=== PATIENT | male | born 1945 | race Caucasian/White ===

== ENCOUNTER 2017-08-30 18:02 | Inpatient (IN) | payer OTHER ==
[~2017-08-30] VITALS: Ht 172.7 cm; Wt 77.5 kg
[2017-08-30] MEDS ORDERED: SODIUM CHLORIDE 0.9% 1000ML 1,000 ML IV STA ×2 (18:25)
[2017-08-30] MEDS ORDERED: OPTIRAY 320 IV PRN (18:45)
[2017-08-30 19:02] LABS: BASO % 0.1 %; BASO ABS # 0.01 K/uL (0-0.2); EOS % 0.1 %; EOS ABS # 0.01 K/uL (0-0.5); HEMATOCRIT 41.6 % (42-52); HEMOGLOBIN 14.5 g/dL (14.0-18.0); IG# 0.02 K/uL (0.00-0.02); LYMPH % 13.6 %; LYMPH ABS # 1.02 K/uL (1.2-3.4); MEAN CELL VOLUME 86.8 fL (80-100); MEAN CORPUSCULAR HEMOGLOBIN 30.3 pg (25-34); MEAN CORPUSCULAR HGB CONC 34.9 g/dl (32-36); MEAN PLATELET VOLUME 9.3 fL (7.4-10.4); MONO % 8.4 %; MONO ABS # 0.63 K/uL (0.11-0.59); NEUT % 77.5 %; NEUT ABS # 5.83 K/uL (1.4-6.5); PLATELET COUNT 212 K/uL (130-400); RED CELL DISTRIBUTION WIDTH CV 13.7 % (11.5-14.5); RED CELL DISTRIBUTION WIDTH SD 43.6 fL (36.4-46.3); WHITE BLOOD COUNT 7.52 K/uL (4.8-10.8)
[2017-08-30 19:18] LABS: ALBUMIN 3.5 gm/dl (3.4-5.0); CALCIUM 8.8 mg/dl (8.5-10.1); CREATININE 1.15 mg/dl (0.60-1.40); PTT PATIENT 24.9 SECONDS (21.0-31.0)
[2017-08-30 19:21] LABS: TOTAL PROTEIN 7.1 gm/dl (6.4-8.2)
[2017-08-30] MEDS ORDERED: CZR50 PO (19:36)
[2017-08-30] MEDS ORDERED: SIMV20TA2 PO (19:36)
--- NOTE | 2017-08-30 20:14 | DIAGNOSTIC IMAGING REPORT ---
ABDOMEN AND PELVIS CT WITH IV CONTRAST CT DOSE: 379.05 mGy.cm HISTORY: Acute generalized abdominal pain with anal bleeding abd pain TECHNIQUE: Multiaxial CT images of the abdomen and pelvis were performed following the use of intravenous contrast. A dose lowering technique was utilized adhering to the principles of ALARA. COMPARISON STUDY: None. FINDINGS: Mild dependent subsegmental bibasilar atelectasis. Calcified granuloma of the basal right lower lobe. There is no pneumatosis or pneumoperitoneum identified. The imaged inferior cardiac chambers are unremarkable. Gallbladder, liver, spleen, pancreas and adrenal glands are within normal limits. Mild nonspecific bilateral perinephric stranding. Nonobstructing 3 mm calculus of the inferior pole left kidney. No ureteral calculi or obstructive uropathy. Partially decompressed urinary bladder. Prostamegaly. Moderate mixed plaquing of the aorta. No bulky adenopathy. No bowel obstruction. Extensive colonic diverticulosis without CT evidence of acute diverticulitis. There is circumferential wall thickening with mucosal hyperemia and mild surrounding inflammatory stranding of the colon which extends from the hepatic flexure to the mid descending colon compatible with colitis. Moderate sized bilateral inguinal hernias are fat containing. Loop of nondilated small bowel is noted within the right hernia sac. Mild free pelvic fluid, likely reactive. Mild diastases recti. Tiny fat filled periumbilical hernia. Bones appear intact. Severe facet arthrosis of the lumbar spine, notably at L4-L5 and L5-S1. IMPRESSION: 1. Moderate circumferential wall thickening with mucosal hyperemia and mild surrounding inflammatory stranding involves the colon extending from the hepatic flexure to the mid descending colon compatible with colitis, possibly from infectious, inflammatory or ischemic etiology. Mild free pelvic fluid is likely reactive. 2. No bowel obstruction or pneumoperitoneum. 3. 3 mm nonobstructing calculus of the inferior pole left kidney. 4. Prostamegaly. 5. Moderate sized bilateral fat filled inguinal hernias. A loop of nondilated ileum extends into the right inguinal hernia. Electronically signed by: Wilian Hansen M.D. 08/30/2017 8:13 PM Dictated Date/Time: 08/30/2017 8:07 PM
[2017-08-30] MEDS ORDERED: [UNRECOGNIZED DRUG - REMARK] PO (20:35)
[2017-08-30] MEDS ORDERED: ACETAMINOPHEN 325 MG TAB PO PRN (21:45)
[2017-08-30] MEDS ORDERED: ALUMINUM/MAGNESIUM/SIMETH (MAALOX MAX) 30 ML UDC PO PRN (21:45)
[2017-08-30] MEDS ORDERED: ONDANSETRON INJ 2 MG/ML 2 ML VIAL IV PRN (21:45)
[2017-08-30] MEDS ORDERED: MAGNESIUM HYDROXIDE SUSP 30 ML UDC PO PRN (21:45)
[2017-08-30] MEDS ORDERED: POLYETHYLENE (MIRALAX) 17 GM PACK PO PRN (21:45)
[2017-08-30] MEDS ORDERED: PIPERACILL/TAZOBAC CONSULT ACTIVE PRN (21:45)
[2017-08-30] MEDS ORDERED: PIPERACILL/TAZOBAC IV 3.375 GM in DEXTROSE 5% 100ML 100 ML IV SCH (22:00)
[2017-08-30] MEDS ORDERED: PIPERACILL/TAZOBAC IV 3.375 GM in DEXTROSE 5% 100ML IV SCH (22:00)
[2017-08-30 22:25] VITALS: BP 194/86; PULSE 68; TEMP 36.9; O2SAT 97
--- NOTE | 2017-08-30 22:27 | EMERGENCY ROOM VISIT NOTE ---
History Report prepared by Celia: Shannon Swain Under the Supervision of: Dr. Rafiq Moore D.O. First contact with patient: 18:08 Chief Complaint: RECTAL BLEEDING Stated Complaint: BLEEDING THROUGH ANUS History of Present Illness The patient is a 72 year old male who presents to the Emergency Room with complaints of persistent rectal bleeding starting 0530 this morning. The patient had been having hard stools so he tried taking 2 Imodium last night. He woke up with abdominal pain and diarrhea. He had several episodes of diarrhea and each one appeared more bright red than the previous. He has never had this before. He is not on any blood thinners. He currently reports some abdominal irritation which he rates as a 0.1/10 in severity. He had some nausea this morning which resolved. He denies any vomiting, urinary burning, chest pain, SOB , lightheadedness, or dizziness. He denies any recent travel or change in diet. He has had an appendectomy. He has no known history of hemorrhoids. He has a history of diverticulitis. Source of History: patient Onset: 0530 this morning Position: other (rectal) Quality: other (bleeding) Timing: other (persistent) Associated Symptoms: + nausea (resolved), + abdominal pain, + diarrhea, No chest pain, No SOB, No vomiting, No urinary symptoms Review of Systems See HPI for pertinent positives & negatives. A total of 10 systems reviewed and were otherwise negative. Past Medical & Surgical Medical Problems: (1) Colitis (2) Diverticulitis (3) Rectal bleeding Family History Noncontributory secondary to age. Social History Smoking Status: Never Smoker Marital Status: Current/Historical Medications Scheduled Losartan Potassium (Losartan Potassium), Unknown Dose PO DAILY Simvastatin (Zocor), Unknown Dose PO QPM [Unknown Cardiac Med], PO DAILY Allergies Coded Allergies: No Known Allergies (Unverified , 08/30/17) Physical Exam Vital Signs Date Time Temp Pulse Resp B/P (MAP) Pulse Ox O2 Delivery O2 Flow Rate FiO2 08/30/17 21:28 69 16 183/90 96 Room Air 08/30/17 20:04 73 16 163/79 98 Room Air 08/30/17 19:22 68 08/30/17 18:38 97 Room Air 08/30/17 18:04 37.2 100 20 176/79 97 Room Air Physical Exam GENERAL: Sitting up in bed, alert, well appearing, well nourished, no distress, non-toxic EYE EXAM: normal conjunctiva. OROPHARYNX: no exudate, no erythema, lips, buccal mucosa, and tongue normal and mucous membranes are moist NECK: supple, no nuchal rigidity, no adenopathy, non-tender LUNGS: Clear to auscultation. Normal chest wall mechanics HEART: no murmurs, S1 normal and S2 normal ABDOMEN: abdomen soft, mild tenderness infraumbilically, normo-active bowel sounds, no masses, no rebound or guarding. BACK: Back is symmetrical on inspection and there is no deformity, no midline tenderness, no CVA tenderness. RECTAL: Chandu blood. SKIN: no rashes and no bruising UPPER EXTREMITIES: upper extremities are grossly normal. LOWER EXTREMITIES: No pitting edema. NEURO EXAM: Normal sensorium, cranial nerves II-XII grossly intact, normal speech, no gross weakness of arms, no gross weakness of legs. Medical Decision & Procedures ER Provider Diagnostic Interpretation: Radiology results as stated below per my review and the radiologist's interpretation: ABDOMEN AND PELVIS CT WITH IV CONTRAST CT DOSE: 379.05 mGy.cm HISTORY: Acute generalized abdominal pain with anal bleeding abd pain TECHNIQUE: Multiaxial CT images of the abdomen and pelvis were performed following the use of intravenous contrast. A dose lowering technique was utilized adhering to the principles of ALARA. COMPARISON STUDY: None. FINDINGS: Mild dependent subsegmental bibasilar atelectasis. Calcified granuloma of the basal right lower lobe. There is no pneumatosis or pneumoperitoneum identified. The imaged inferior cardiac chambers are unremarkable. Gallbladder, liver, spleen, pancreas and adrenal glands are within normal limits. Mild nonspecific bilateral perinephric stranding. Nonobstructing 3 mm calculus of the inferior pole left kidney. No ureteral calculi or obstructive uropathy. Partially decompressed urinary bladder. Prostamegaly. Moderate mixed plaquing of the aorta. No bulky adenopathy. No bowel obstruction. Extensive colonic diverticulosis without CT evidence of acute diverticulitis. There is circumferential wall thickening with mucosal hyperemia and mild surrounding inflammatory stranding of the colon which extends from the hepatic flexure to the mid descending colon compatible with colitis. Moderate sized bilateral inguinal hernias are fat containing. Loop of nondilated small bowel is noted within the right hernia sac. Mild free pelvic fluid, likely reactive. Mild diastases recti. Tiny fat filled periumbilical hernia. Bones appear intact. Severe facet arthrosis of the lumbar spine, notably at L4-L5 and L5-S1. IMPRESSION: 1. Moderate circumferential wall thickening with mucosal hyperemia and mild surrounding inflammatory stranding involves the colon extending from the hepatic flexure to the mid descending colon compatible with colitis, possibly from infectious, inflammatory or ischemic etiology. Mild free pelvic fluid is likely reactive. 2. No bowel obstruction or pneumoperitoneum. 3. 3 mm nonobstructing calculus of the inferior pole left kidney. 4. Prostamegaly. 5. Moderate sized bilateral fat filled inguinal hernias. A loop of nondilated ileum extends into the right inguinal hernia. Electronically signed by: Wilian Hansen M.D. 08/30/2017 8:13 PM Dictated Date/Time: 08/30/2017 8:07 PM Laboratory Results 08/30/17 18:50 Red Blood Count 4.79, Mean Corpuscular Volume 86.8, Mean Corpuscular Hemoglobin 30.3, Mean Corpuscular Hemoglobin Concent 34.9, Mean Platelet Volume 9.3, Neutrophils (%) (Auto) 77.5, Lymphocytes (%) (Auto) 13.6, Monocytes (%) (Auto) 8.4, Eosinophils (%) (Auto) 0.1, Basophils (%) (Auto) 0.1, Neutrophils # (Auto) 5.83, Lymphocytes # (Auto) 1.02, Monocytes # (Auto) 0.63, Eosinophils # (Auto) 0.01, Basophils # (Auto) 0.01 08/30/17 18:50 Test 08/30/17 18:50 08/30/17 19:30 08/30/17 20:56 White Blood Count 7.52 K/uL (4.8-10.8) Red Blood Count 4.79 M/uL (4.7-6.1) Hemoglobin 14.5 g/dL (14.0-18.0) Hematocrit 41.6 % (42-52) Mean Corpuscular Volume 86.8 fL (80-100) Mean Corpuscular Hemoglobin 30.3 pg (25-34) Mean Corpuscular Hemoglobin Concent 34.9 g/dl (32-36) Platelet Count 212 K/uL (130-400) Mean Platelet Volume 9.3 fL (7.4-10.4) Neutrophils (%) (Auto) 77.5 % Lymphocytes (%) (Auto) 13.6 % Monocytes (%) (Auto) 8.4 % Eosinophils (%) (Auto) 0.1 % Basophils (%) (Auto) 0.1 % Neutrophils # (Auto) 5.83 K/uL (1.4-6.5) Lymphocytes # (Auto) 1.02 K/uL (1.2-3.4) Monocytes # (Auto) 0.63 K/uL (0.11-0.59) Eosinophils # (Auto) 0.01 K/uL (0-0.5) Basophils # (Auto) 0.01 K/uL (0-0.2) RDW Standard Deviation 43.6 fL (36.4-46.3) RDW Coefficient of Variation 13.7 % (11.5-14.5) Immature Granulocyte % (Auto) 0.3 % Immature Granulocyte # (Auto) 0.02 K/uL (0.00-0.02) Prothrombin Time 10.5 SECONDS (9.0-12.0) Prothromb Time International Ratio 1.0 (0.9-1.1) Activated Partial Thromboplast Time 24.9 SECONDS (21.0-31.0) Partial Thromboplastin Ratio 1.0 Anion Gap 6.0 mmol/L (3-11) Est Creatinine Clear Calc Drug Dose 55.3 ml/min Estimated GFR () 72.8 Estimated GFR (Non- 62.8 BUN/Creatinine Ratio 19.4 (10-20) Calcium Level 8.8 mg/dl (8.5-10.1) Total Bilirubin 0.5 mg/dl (0.2-1) Direct Bilirubin 0.1 mg/dl (0-0.2) Aspartate Amino Transf (AST/SGOT) 19 U/L (15-37) Alanine Aminotransferase (ALT/SGPT) 28 U/L (12-78) Alkaline Phosphatase 73 U/L (45-117) Total Protein 7.1 gm/dl (6.4-8.2) Albumin 3.5 gm/dl (3.4-5.0) Lipase 88 U/L (73-393) Urine Color DK YELLOW Urine Appearance CLEAR (CLEAR) Urine pH 5.0 (4.5-7.5) Urine Specific [employer] 1.028 (1.000-1.030) Urine Protein NEG (NEG) Urine Glucose (UA) NEG (NEG) Urine Ketones NEG (NEG) Urine Occult Blood NEG (NEG) Urine Nitrite NEG (NEG) Urine Bilirubin NEG (NEG) Urine Urobilinogen NEG (NEG) Urine Leukocyte Esterase NEG (NEG) Lactic Acid Level 0.9 mmol/L (0.4-2.0) Laboratory results per my review. Medications Administered Medications (Trade) Dose Ordered Sig/Alba Route Start Time Stop Time Status Last Admin Dose Admin Sodium Chloride 1,000 ml @ 999 mls/hr Q1H1M STAT IV 08/30/17 18:25 08/30/17 19:25 DC 08/30/17 18:54 999 MLS/HR Sodium Chloride 1,000 ml @ 999 mls/hr Q1H1M STAT IV 08/30/17 18:25 08/30/17 19:25 DC 08/30/17 20:06 999 MLS/HR ECG Per My Interpretation Indication: other Rate (beats per minute): 70 Rhythm: sinus rhythm Findings: left axis deviation, other (normal intervals, no PVC) ED Course ED COURSE: Vital signs were reviewed and showed tachycardia. The patients medical record was reviewed The above diagnostic studies were performed and reviewed. ED treatments and interventions as stated above. 1809: The patient was evaluated in room B12B. A complete history and physical examination was performed. 1824: Sodium Chloride 1000 ml @ 999 mls/hr IV, Sodium Chloride 1000 ml @ 999 mls /hr IV. 2032: Upon reevaluation, the patient is resting comfortably.I discussed my findings with the patient and he understands and agrees with the treatment plan. Based on the patients age, coexisting illnesses, exam and lab findings the decision to treat as an inpatient was made. The patient remained stable while under my care. The patient will be evaluated for further management. 2034: I reviewed the patient's case with Dr. Soto, [facility] [place]. He will evaluate the patient for further management. Medical Decision Differential diagnoses includes but is not limited to gastritis, peptic ulcer disease, GERD, gallbladder disease, pancreatitis, small bowel obstruction, acute coronary syndrome, pericarditis, ischemic bowel, irritable bowel disease, irritable bowel syndrome, appendicitis, diverticulitis, malignancy, hernia, urinary tract infection, torsion, perforation, trauma, infectious. Patient is a 72-year-old male who presents the ER for bright red blood per rectum which has been present today. He has been having diarrhea and has had 5 bowel movements of bright red blood. This is gradually getting worse. Abdominal exam is fairly benign. CBC without significant leukocytosis or anemia. BMP along with LFTs, bilirubin and lipase was normal. Lactic acid was normal. UA was negative. CT of the abdomen pelvis shows a diffuse colitis. Patient was given IV fluids. Based on the colitis I favor unlikely ischemia with his benign exam and negative lactic acid. No blood thinners. Discussed with internal medicine and patient will be observed overnight. Medication Reconcilliation Current Medication List: was personally reviewed by me Blood Pressure Screening Patient's blood pressure: Normal blood pressure Blood pressure disposition: Did not require urgent referral Consults Time Called: 2029 Consulting Physician: Dr. Soto [facility] [place] Returned Call: 2034 I reviewed the patient's case with him. He will evaluate the patient for further management. Impression Primary Impression: Colitis Additional Impression: Rectal bleeding Scribe Attestation The scribe's documentation has been prepared under my direction and personally reviewed by me in its entirety. I confirm that the note above accurately reflects all work, treatment, procedures, and medical decision making performed by me. Departure Information Dispostion Being Evaluated By Hospitalist Referrals Matilde Stewart MD (PCP) Patient Instructions My [facility] Problem Qualifiers
[2017-08-30 22:54] VITALS: BP 177/77; PULSE 63; TEMP 37; O2SAT 95
[2017-08-30] MEDS: SODIUM CHLORIDE 0.9% 1000ML 1,000 ML IV SCH (23:24)
[2017-08-31 00:23] VITALS: Ht 172.7 cm; Wt 77.5 kg
--- NOTE | 2017-08-31 01:18 | History and Physical ---
History & Physical Date & Time of Service: Aug 31, 2017 at 00:58 Chief Complaint: Colitis, Rectal Bleeding Primary Care Physician: Matilde Stewart MD History of Present Illness Source: patient, spouse This is a pleasant 72 year old male with a history of hypertension and hyperlipidemia who presents with rectal bleeding that started today. States that since yesterday, he has been having diarrhea. This morning with his first 3 bowel movements, he noticed blood streaking. Then with the next 2, he noted having fresh blood along with clot in the stool. He notes lower abdominal achiness 1-2/10, worse with manual pressure. The pain does not radiate to the back. He notes some nausea without vomiting. He also states feeling fatigued today and having low energy. Interesting he notes constipation for the past 2 months. States he has 2 BM attempts daily but that each time he only bring out very pellets of stool. He notes that yesterday, he tried to take ?immodium to treat the constipation, but ended up getting diarrhea? He has not had any fevers, chills or sweats. He does note being treated in early July for diverticulitis. This was diagnosed clinically. He completed a course of Cipro Flagyl with resolution of his symptoms. He states that his last colonoscopy would have been at least 5 years ago, but is uncertain of the most recent result. Past Medical/Surgical History Hypertension Hyperlipidemia Diverticulitis, , diagnosed clinically Family History Noncontributory Social History Smoking Status: Never Smoker Smokeless Tobacco Use: No Alcohol Use: none Drug Use: none Marital Status: Housing status: lives with significant other Occupational Status: retired Immunizations History of Influenza Vaccine: Unknown History of Tetanus Vaccine?: Unknown History of Pneumococcal: Unknown History of Hepatitis B Vaccine: Unknown Allergies Coded Allergies: No Known Allergies (Unverified , 08/30/17) Home Medications Scheduled Losartan Potassium (Losartan Potassium), Unknown Dose PO DAILY Simvastatin (Zocor), Unknown Dose PO QPM [Unknown Cardiac Med], PO DAILY Review of Systems A 10 point review of systems was negative unless stated above. Physical Exam Vital Signs Date Time Temp Pulse Resp B/P (MAP) Pulse Ox O2 Delivery O2 Flow Rate FiO2 08/30/17 22:54 37.0 63 16 177/77 (110) 95 Room Air 08/30/17 22:25 36.9 68 16 194/86 (122) 97 Room Air 08/30/17 22:12 78 18 183/92 96 08/30/17 22:09 78 18 183/92 96 Room Air 08/30/17 21:28 69 16 183/90 96 Room Air 08/30/17 20:04 73 16 163/79 98 Room Air 08/30/17 19:22 68 08/30/17 18:38 97 Room Air 08/30/17 18:04 37.2 100 20 176/79 97 Room Air General Appearance: WD/WN, no apparent distress Head: normocephalic, atraumatic Eyes: normal inspection, EOMI ENT: hearing grossly normal, pharynx normal Neck: supple, no adenopathy, no JVD Respiratory/Chest: lungs clear, no respiratory distress Cardiovascular: regular rate, rhythm, no gallop, no murmur Abdomen/GI: normal bowel sounds, soft, + pertinent finding (mild tenderness between suprapubic area and LLQ. No rebound or guarding. No rigidity. Rovisgns negative.) Back: normal inspection, no CVA tenderness Extremities/Musculoskelatal: no calf tenderness, no pedal edema Neurologic/Psych: alert, normal mood/affect, oriented x 3 Skin: normal color, warm/dry, no rash Lymphatic: no adenopathy Diagnostics Laboratory Results Results Past 24 Hours Test 08/30/17 18:50 08/30/17 19:30 08/30/17 20:56 08/30/17 23:41 Range/Units White Blood Count 7.52 4.8-10.8 K/uL Red Blood Count 4.79 4.7-6.1 M/uL Hemoglobin 14.5 14.0-18.0 g/dL Hematocrit 41.6 42-52 % Mean Corpuscular Volume 86.8 80-100 fL Mean Corpuscular Hemoglobin 30.3 25-34 pg Mean Corpuscular Hemoglobin Concent 34.9 32-36 g/dl Platelet Count 212 130-400 K/uL Mean Platelet Volume 9.3 7.4-10.4 fL Neutrophils (%) (Auto) 77.5 % Lymphocytes (%) (Auto) 13.6 % Monocytes (%) (Auto) 8.4 % Eosinophils (%) (Auto) 0.1 % Basophils (%) (Auto) 0.1 % Neutrophils # (Auto) 5.83 1.4-6.5 K/uL Lymphocytes # (Auto) 1.02 1.2-3.4 K/uL Monocytes # (Auto) 0.63 0.11-0.59 K/uL Eosinophils # (Auto) 0.01 0-0.5 K/uL Basophils # (Auto) 0.01 0-0.2 K/uL RDW Standard Deviation 43.6 36.4-46.3 fL RDW Coefficient of Variation 13.7 11.5-14.5 % Immature Granulocyte % (Auto) 0.3 % Immature Granulocyte # (Auto) 0.02 0.00-0.02 K/uL Prothrombin Time 10.5 9.0-12.0 SECONDS Prothromb Time International Ratio 1.0 0.9-1.1 Activated Partial Thromboplast Time 24.9 21.0-31.0 SECONDS Partial Thromboplastin Ratio 1.0 Sodium Level 135 136-145 mmol/L Potassium Level 4.0 3.5-5.1 mmol/L Chloride Level 102 98-107 mmol/L Carbon Dioxide Level 27 21-32 mmol/L Anion Gap 6.0 3-11 mmol/L Blood Urea Nitrogen 22 7-18 mg/dl Creatinine 1.15 0.60-1.40 mg/dl Est Creatinine Clear Calc Drug Dose 55.3 ml/min Estimated GFR () 72.8 Estimated GFR (Non- 62.8 BUN/Creatinine Ratio 19.4 10-20 Random Glucose 161 70-99 mg/dl Calcium Level 8.8 8.5-10.1 mg/dl Total Bilirubin 0.5 0.2-1 mg/dl Direct Bilirubin 0.1 0-0.2 mg/dl Aspartate Amino Transf (AST/SGOT) 19 15-37 U/L Alanine Aminotransferase (ALT/SGPT) 28 12-78 U/L Alkaline Phosphatase 73 45-117 U/L Total Protein 7.1 6.4-8.2 gm/dl Albumin 3.5 3.4-5.0 gm/dl Lipase 88 73-393 U/L Urine Color DK YELLOW Urine Appearance CLEAR CLEAR Urine pH 5.0 4.5-7.5 Urine Specific [place] 1.028 1.000-1.030 Urine Protein NEG NEG Urine Glucose (UA) NEG NEG Urine Ketones NEG NEG Urine Occult Blood NEG NEG Urine Nitrite NEG NEG Urine Bilirubin NEG NEG Urine Urobilinogen NEG NEG Urine Leukocyte Esterase NEG NEG Lactic Acid Level 0.9 0.4-2.0 mmol/L Microbiology Results 08/30/17 C.difficile Toxin B Gene (PCR), Received Pending 08/30/17 WBC Smear, Received Pending 08/30/17 Shiga Toxin Test, Received Pending 08/30/17 Stool Culture, Received Pending Diagnostic Radiology ABDOMEN AND PELVIS CT WITH IV CONTRAST CT DOSE: 379.05 mGy.cm HISTORY: Acute generalized abdominal pain with anal bleeding abd pain TECHNIQUE: Multiaxial CT images of the abdomen and pelvis were performed following the use of intravenous contrast. A dose lowering technique was utilized adhering to the principles of ALARA. COMPARISON STUDY: None. FINDINGS: Mild dependent subsegmental bibasilar atelectasis. Calcified granuloma of the basal right lower lobe. There is no pneumatosis or pneumoperitoneum identified. The imaged inferior cardiac chambers are unremarkable. Gallbladder, liver, spleen, pancreas and adrenal glands are within normal limits. Mild nonspecific bilateral perinephric stranding. Nonobstructing 3 mm calculus of the inferior pole left kidney. No ureteral calculi or obstructive uropathy. Partially decompressed urinary bladder. Prostamegaly. Moderate mixed plaquing of the aorta. No bulky adenopathy. No bowel obstruction. Extensive colonic diverticulosis without CT evidence of acute diverticulitis. There is circumferential wall thickening with mucosal hyperemia and mild surrounding inflammatory stranding of the colon which extends from the hepatic flexure to the mid descending colon compatible with colitis. Moderate sized bilateral inguinal hernias are fat containing. Loop of nondilated small bowel is noted within the right hernia sac. Mild free pelvic fluid, likely reactive. Mild diastases recti. Tiny fat filled periumbilical hernia. Bones appear intact. Severe facet arthrosis of the lumbar spine, notably at L4-L5 and L5-S1. IMPRESSION: 1. Moderate circumferential wall thickening with mucosal hyperemia and mild surrounding inflammatory stranding involves the colon extending from the hepatic flexure to the mid descending colon compatible with colitis, possibly from infectious, inflammatory or ischemic etiology. Mild free pelvic fluid is likely reactive. 2. No bowel obstruction or pneumoperitoneum. 3. 3 mm nonobstructing calculus of the inferior pole left kidney. 4. Prostamegaly. 5. Moderate sized bilateral fat filled inguinal hernias. A loop of nondilated ileum extends into the right inguinal hernia. Electronically signed by: Wilian Hansen M.D. 08/30/2017 8:13 PM Dictated Date/Time: 08/30/2017 8:07 PM The status of this report is Signed. Draft = Not yet reviewed or approved by Radiologist. Signed = Reviewed and approved by Radiologist. 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 Our plan for him is as follow: - Non-specific colitis: NPO. IVF. Consult GI, recommendations appreciated. Have held off on using antibiotics in case this is invasive E.coli in infection due to risk of HUS. Stool cultures, WBC and Ova/Parasites. Given recent antibiotic use, check C.diff. - Hypertension: Home medications are Terazosin 5 mg HS and Losartan 100 mg daily. These medications are on hold due to NPO status. Will add Hydralazine PRN for HTN. - Hyperlipidemia: Simvastatin on hold due to NPO status. - DVT: SCD and TEDs. Pharmacological means contra-indicated due to recent GI bleed. - Code Status: Level I Full Code - Disposition: Med/Surg Attending addendum: I have physically seen this patient, have supervised the medical residents activities, and agree with the H&P unless as otherwise noted. Assessment and Plan: Colitis involving hepatic flexure to descending colon-- N.p.o. IV fluids Check stool for C. difficile, recent antibiotic use for presumptive diverticulitis as outpatient. Check stool culture, E. coli, Shigella, etc. Zofran 4 mg IV every 6 hours as needed Pantoprazole 40 mg IV daily. Hold on antibiotics until stool studies have returned. Advanced Directives Existing Advance Directive: No Existing Living Will: No Existing Power of Seismic Plotter: No Resuscitation Status VTE Prophylaxis Will order VTE Prophylaxis: Yes Reason for no VTE drug order: Contraindicated
[2017-08-31 01:42] VITALS: BP 172/80; PULSE 84
[2017-08-31] MEDS: HydrALAZINE HCL 20 MG/ML VIAL IV. PRN (01:44)
[2017-08-31 04:03] VITALS: BP 147/67; PULSE 85
[2017-08-31] MEDS: SODIUM CHLORIDE 0.9% 1000ML 1,000 ML IV SCH ×2 (05:45→08:23)
[2017-08-31 07:00] LABS: BASO % 0.1 %; BASO ABS # 0.01 K/uL (0-0.2); EOS % 1.4 %; EOS ABS # 0.12 K/uL (0-0.5); HEMATOCRIT 37.5 % (42-52); HEMOGLOBIN 13.1 g/dL (14.0-18.0); IG# 0.02 K/uL (0.00-0.02); LYMPH % 21.9 %; LYMPH ABS # 1.86 K/uL (1.2-3.4); MEAN CELL VOLUME 86.8 fL (80-100); MEAN CORPUSCULAR HEMOGLOBIN 30.3 pg (25-34); MEAN CORPUSCULAR HGB CONC 34.9 g/dl (32-36); MEAN PLATELET VOLUME 9.5 fL (7.4-10.4); MONO % 6.9 %; MONO ABS # 0.59 K/uL (0.11-0.59); NEUT % 69.5 %; PLATELET COUNT 202 K/uL (130-400); RED CELL DISTRIBUTION WIDTH CV 13.9 % (11.5-14.5); RED CELL DISTRIBUTION WIDTH SD 44.3 fL (36.4-46.3)
[2017-08-31 07:38] VITALS: BP 141/64; PULSE 78; TEMP 36.9; O2SAT 94
[2017-08-31 07:43] LABS: CREATININE 0.86 mg/dl (0.60-1.40); POTASSIUM 3.8 mmol/L (3.5-5.1)
[2017-08-31] MEDS ORDERED: PIPERACILL/TAZOBAC CONSULT ACTIVE PRN (08:15)
[2017-08-31] MEDS ORDERED: PIPERACILL/TAZOBAC IV 3.375 GM in DEXTROSE 5% 100ML 100 ML IV ONE (10:00)
--- NOTE | 2017-08-31 11:54 | GASTROINTESTINAL CONSULTATION ---
DATE OF CONSULTATION: 08/31/2017 REASON FOR EVALUATION: Rectal bleeding and diarrhea. HISTORY OF PRESENT ILLNESS: The patient is a 72-year-old male who was having some problem with constipation and took an oral medication yesterday, which caused him to have diarrhea. After 3 bowel movements, he started noticing blood streaking in the stool and then the following 2 bowel movements were pretty much all fresh blood and clots. There was minimal crampy abdominal pain associated with the bowel movements, but no other associated symptoms. He has not been on any antibiotics recently. He had a colonoscopy about 5 or 6 years ago, which he reports as just being negative. CT scan on admission showed some thickening of the colon from the hepatic flexure to the descending colon. His white count and lactic acid levels were normal, mitigating against ischemia. Stool for C. diff and fecal leukocytes were negative also. Stool culture is pending. PAST MEDICAL HISTORY: Remarkable for hypertension, hyperlipidemia, diverticulitis in July 2017 diagnosed clinically, treated with Cipro and Flagyl. MEDICATIONS: Losartan, Zocor. ALLERGIES: None. FAMILY HISTORY: Noncontributory. SOCIAL HISTORY: The patient is . He is retired, does not smoke, does not drink. REVIEW OF SYSTEMS: Negative for 12 systems. PHYSICAL EXAMINATION: GENERAL: The patient appears awake, alert, in no acute distress. VITAL SIGNS: Blood pressure is 177/77, pulse 63. He is afebrile. Room air saturations 95%. ABDOMEN: Soft. There are no masses, tenderness, or hepatosplenomegaly. LUNGS: Clear. HEART: Showed a normal S1 and S2. Regular rate and rhythm. IMPRESSION AND PLAN: The patient has acute onset diarrhea and rectal bleeding with an abnormal CT scan. Fecal leukocytes and C. diff are negative. Stool culture is pending. There is some thickening of the transverse and descending colons. I think this could be an infection, although his white count is negative. It is also possible he could have ischemia despite the normal white count and lactic acid. Plan on scheduling the patient for a flexible sigmoidoscopy tomorrow for further evaluation. In the meantime, we will await his stool culture.
--- NOTE | 2017-08-31 12:50 | Family Medicine Progress Note ---
Progress Note Date of Service Aug 31, 2017. Subjective Pt evaluation today including: conversation w/ patient, physical exam, chart review, lab review, review of studies Pain: 09/30 PO Intake: NPO Voiding: no voiding problems Patient has had improved abdominal pain and no more diarrhea however he has ongoing right lower quadrant pain Notes he does feel hungry We did discuss his right inguinal hernia and he notes " i just live with it, when I cough i just hold it in place" Constitutional: No fever Eyes: No worsening of vision ENT: No hearing loss Respiratory: No cough, No sputum, No wheezing, No shortness of breath, No dyspnea on exertion Cardiovascular: No chest pain Abdomen: + pain, No nausea, No vomiting, No diarrhea, No constipation, No GI bleeding Musculoskeletal: No joint pain, No muscle pain Male : + slowing stream, No dysuria Neurologic: No weakness, No balance problems Psychiatric: No depression symptoms Heme: No abnormal bleeding/bruising Endo: No fatigue Skin: No rash Medications Medications Administered Medications (Trade) Dose Ordered Sig/Alba Route Start Time Stop Time Status Last Admin Dose Admin Sodium Chloride 1,000 ml @ 999 mls/hr Q1H1M STAT IV 08/30/17 18:25 08/30/17 19:25 DC 08/30/17 18:54 999 MLS/HR Sodium Chloride 1,000 ml @ 999 mls/hr Q1H1M STAT IV 08/30/17 18:25 08/30/17 19:25 DC 08/30/17 20:06 999 MLS/HR Sodium Chloride 1,000 ml @ 75 mls/hr [id number] IV 08/30/17 21:45 09/29/17 21:44 08/31/17 08:23 125 MLS/HR Hydralazine HCl (HydrALAZINE INJ) 10 mg Q4H PRN IV. 08/31/17 01:00 09/30/17 00:59 08/31/17 01:44 10 MG Piperacillin Sod/ Tazobactam Sod 3.375 gm/Dextrose 115 ml @ 230 mls/hr 1000 ONCE IV 08/31/17 10:00 08/31/17 10:29 DC 08/31/17 10:22 230 MLS/HR Objective Vital Signs Date Time Temp Pulse Resp B/P (MAP) Pulse Ox O2 Delivery O2 Flow Rate FiO2 08/31/17 09:10 Room Air 08/31/17 07:38 36.9 78 16 141/64 (89) 94 Room Air 08/31/17 04:03 85 147/67 (93) 08/31/17 01:42 84 172/80 (110) 08/31/17 00:23 Room Air 08/31/17 00:23 Room Air 08/30/17 22:54 37.0 63 16 177/77 (110) 95 Room Air 08/30/17 22:25 36.9 68 16 194/86 (122) 97 Room Air 08/30/17 22:12 78 18 183/92 96 08/30/17 22:09 78 18 183/92 96 Room Air 08/30/17 21:28 69 16 183/90 96 Room Air 08/30/17 20:04 73 16 163/79 98 Room Air 08/30/17 19:22 68 08/30/17 18:38 97 Room Air 08/30/17 18:04 37.2 100 20 176/79 97 Room Air Physical Exam General Appearance: no apparent distress Eyes: normal inspection ENT: normal ENT inspection Neck: supple Respiratory/Chest: normal breath sounds, no respiratory distress, no accessory muscle use Cardiovascular: regular rate, rhythm, no murmur Abdomen: normal bowel sounds, + guarding (when trying to palpate the RLQ), + tenderness (RLQ without rebound) Extremities: normal range of motion, non-tender, normal inspection, no pedal edema, no calf tenderness Neurologic/Psychiatric: alert, normal mood/affect, oriented x 3 Skin: normal color, warm/dry, no rash Lymphatic: no adenopathy Laboratory Results Results Past 24 Hours Test 08/30/17 18:50 08/30/17 19:30 08/30/17 20:56 08/30/17 23:41 Range/Units White Blood Count 7.52 4.8-10.8 K/uL Red Blood Count 4.79 4.7-6.1 M/uL Hemoglobin 14.5 14.0-18.0 g/dL Hematocrit 41.6 42-52 % Mean Corpuscular Volume 86.8 80-100 fL Mean Corpuscular Hemoglobin 30.3 25-34 pg Mean Corpuscular Hemoglobin Concent 34.9 32-36 g/dl Platelet Count 212 130-400 K/uL Mean Platelet Volume 9.3 7.4-10.4 fL Neutrophils (%) (Auto) 77.5 % Lymphocytes (%) (Auto) 13.6 % Monocytes (%) (Auto) 8.4 % Eosinophils (%) (Auto) 0.1 % Basophils (%) (Auto) 0.1 % Neutrophils # (Auto) 5.83 1.4-6.5 K/uL Lymphocytes # (Auto) 1.02 1.2-3.4 K/uL Monocytes # (Auto) 0.63 0.11-0.59 K/uL Eosinophils # (Auto) 0.01 0-0.5 K/uL Basophils # (Auto) 0.01 0-0.2 K/uL RDW Standard Deviation 43.6 36.4-46.3 fL RDW Coefficient of Variation 13.7 11.5-14.5 % Immature Granulocyte % (Auto) 0.3 % Immature Granulocyte # (Auto) 0.02 0.00-0.02 K/uL Prothrombin Time 10.5 9.0-12.0 SECONDS Prothromb Time International Ratio 1.0 0.9-1.1 Activated Partial Thromboplast Time 24.9 21.0-31.0 SECONDS Partial Thromboplastin Ratio 1.0 Sodium Level 135 136-145 mmol/L Potassium Level 4.0 3.5-5.1 mmol/L Chloride Level 102 98-107 mmol/L Carbon Dioxide Level 27 21-32 mmol/L Anion Gap 6.0 3-11 mmol/L Blood Urea Nitrogen 22 7-18 mg/dl Creatinine 1.15 0.60-1.40 mg/dl Est Creatinine Clear Calc Drug Dose 55.3 ml/min Estimated GFR () 72.8 Estimated GFR (Non- 62.8 BUN/Creatinine Ratio 19.4 10-20 Random Glucose 161 70-99 mg/dl Calcium Level 8.8 8.5-10.1 mg/dl Total Bilirubin 0.5 0.2-1 mg/dl Direct Bilirubin 0.1 0-0.2 mg/dl Aspartate Amino Transf (AST/SGOT) 19 15-37 U/L Alanine Aminotransferase (ALT/SGPT) 28 12-78 U/L Alkaline Phosphatase 73 45-117 U/L Total Protein 7.1 6.4-8.2 gm/dl Albumin 3.5 3.4-5.0 gm/dl Lipase 88 73-393 U/L Urine Color DK YELLOW Urine Appearance CLEAR CLEAR Urine pH 5.0 4.5-7.5 Urine Specific [place] 1.028 1.000-1.030 Urine Protein NEG NEG Urine Glucose (UA) NEG NEG Urine Ketones NEG NEG Urine Occult Blood NEG NEG Urine Nitrite NEG NEG Urine Bilirubin NEG NEG Urine Urobilinogen NEG NEG Urine Leukocyte Esterase NEG NEG Lactic Acid Level 0.9 0.4-2.0 mmol/L Test 08/31/17 06:39 Range/Units White Blood Count 8.50 4.8-10.8 K/uL Red Blood Count 4.32 4.7-6.1 M/uL Hemoglobin 13.1 14.0-18.0 g/dL Hematocrit 37.5 42-52 % Mean Corpuscular Volume 86.8 80-100 fL Mean Corpuscular Hemoglobin 30.3 25-34 pg Mean Corpuscular Hemoglobin Concent 34.9 32-36 g/dl Platelet Count 202 130-400 K/uL Mean Platelet Volume 9.5 7.4-10.4 fL Neutrophils (%) (Auto) 69.5 % Lymphocytes (%) (Auto) 21.9 % Monocytes (%) (Auto) 6.9 % Eosinophils (%) (Auto) 1.4 % Basophils (%) (Auto) 0.1 % Neutrophils # (Auto) 5.90 1.4-6.5 K/uL Lymphocytes # (Auto) 1.86 1.2-3.4 K/uL Monocytes # (Auto) 0.59 0.11-0.59 K/uL Eosinophils # (Auto) 0.12 0-0.5 K/uL Basophils # (Auto) 0.01 0-0.2 K/uL RDW Standard Deviation 44.3 36.4-46.3 fL RDW Coefficient of Variation 13.9 11.5-14.5 % Immature Granulocyte % (Auto) 0.2 % Immature Granulocyte # (Auto) 0.02 0.00-0.02 K/uL Sodium Level 138 136-145 mmol/L Potassium Level 3.8 3.5-5.1 mmol/L Chloride Level 108 98-107 mmol/L Carbon Dioxide Level 22 21-32 mmol/L Anion Gap 8.0 3-11 mmol/L Blood Urea Nitrogen 16 7-18 mg/dl Creatinine 0.86 0.60-1.40 mg/dl Est Creatinine Clear Calc Drug Dose 74.0 ml/min Estimated GFR () 99.7 Estimated GFR (Non- 86.0 BUN/Creatinine Ratio 19.1 10-20 Random Glucose 106 70-99 mg/dl Calcium Level 8.0 8.5-10.1 mg/dl Microbiology Results 08/30/17 C.difficile Toxin B Gene (PCR) - Final, Complete No C. difficile toxin B gene detected 08/30/17 WBC Smear - Final, Resulted 08/30/17 Shiga Toxin Test, Resulted Pending 08/30/17 Stool Culture, Resulted Pending Assessment and Plan This is a 72 yo m with HTN, BPH and PSA between -, HLD that presented to us with what appears to be a colitis of unknown etiology and BRBPR. Colitis secondary to infectious vs inflammatory vs malignancy with new onset constipation - GI consult, appreciate recs - NPO for sigmoidoscopy tomorrow - Stool cultures pending, C Diff and WBC stool neg - Zosyn - NSS decreased to 75 cc/h - CBC in am Bilateral Inguinal hernia, Right containing bowel - Agreeable to outpatient general surgery consult HTN - Losartan 100 mg daily and Hytrin 5 mg HS - patient is intolerant to diuretics secondary to BPH BPH with elevated PSA between -20 - Hytrin 5 mg HS - Placed on this with hope to help with BPH and uncontrolled HTN however notes to me today that it may not be helping with BPH symptoms - intolerant to flomax secondary to retrograde ejaculation and not interested in finasteride as still sexually active - could consider increasing Hytrin dose to 10 mg or if insurance would cover; d/ c Hytrin altogether and change to Cialis 5 mg daily with change of antihypertensive to an agent such as carvedilol - Urology referral was offered in office however had biopsies in past and PSA stable, would prefer not to see urology HLD - continue Simvastatin DVT Prophylaxis - chemical prophy contraindicated with active bleeding, SCD FULL CODE Resident Physician Supervision Note: I interviewed and examined the patient. Discussed with Dr. Stewart and agree with findings and plan as documented in the note. Any exceptions or clarifications are listed here: None Patient has had no further bowel movements although started any significant bowel movements while he has been here her medicine is seen and will perform a flex sig with attempts at cleaning out his colon there is also some discussion of possible ischemic colitis as the patient does not have a significant white blood cell count elevation Vital signs are stable currently with temp 36 9 pulse 70 respiration 16 BP 141/ 64 he is maintained on intravenous Zosyn therapy His abdomen is normoactive bowel sounds he is soft but tender especially in the left side (his family noted he was tender on the right side at home) Colitis possibly infectious versus ischemic patient will be continued on his Zosyn therapy allowed to have some oral intake of liquids and his oral medications continuing the plan of a possible flexible sigmoidoscopy after attempted and producing increased stool to have better viewing of his descending colon Documented By: Christoph Arizmendi Continued [facility] stay due to: multiple IV medications needed Discharge planning: uncertain
[2017-08-31 14:52] VITALS: BP 161/77; PULSE 65; TEMP 36.9; O2SAT 96
[2017-08-31] MEDS: PIPERACILL/TAZOBAC IV 3.375 GM in DEXTROSE 5% 100ML 100 ML IV SCH ×2 (15:33→23:46)
[2017-08-31] MEDS: SIMVASTATIN 40 MG TAB PO SCH (20:30)
[2017-08-31 23:35] VITALS: BP 146/66; PULSE 70; TEMP 37.6; O2SAT 96
[2017-09-01] MEDS: SODIUM CHLORIDE 0.9% 1000ML 1,000 ML IV SCH ×2 (05:20→20:33)
[2017-09-01 07:08] LABS: BASO % 0.4 %; BASO ABS # 0.03 K/uL (0-0.2); EOS % 5.9 %; EOS ABS # 0.46 K/uL (0-0.5); HEMATOCRIT 37.7 % (42-52); HEMOGLOBIN 12.3 g/dL (14.0-18.0); IG# 0.01 K/uL (0.00-0.02); LYMPH % 27.9 %; LYMPH ABS # 2.16 K/uL (1.2-3.4); MEAN CELL VOLUME 88.7 fL (80-100); MEAN CORPUSCULAR HEMOGLOBIN 28.9 pg (25-34); MEAN CORPUSCULAR HGB CONC 32.6 g/dl (32-36); MEAN PLATELET VOLUME 9.7 fL (7.4-10.4); MONO % 8.5 %; MONO ABS # 0.66 K/uL (0.11-0.59); NEUT % 57.2 %; NEUT ABS # 4.43 K/uL (1.4-6.5); PLATELET COUNT 201 K/uL (130-400); RED CELL DISTRIBUTION WIDTH CV 14.1 % (11.5-14.5); RED CELL DISTRIBUTION WIDTH SD 45.9 fL (36.4-46.3); WHITE BLOOD COUNT 7.75 K/uL (4.8-10.8)
[2017-09-01 07:37] LABS: CREATININE 1.09 mg/dl (0.60-1.40)
[2017-09-01 07:39] LABS: CALCIUM 7.6 mg/dl (8.5-10.1); POTASSIUM 3.7 mmol/L (3.5-5.1)
[2017-09-01] MEDS: PIPERACILL/TAZOBAC IV 3.375 GM in DEXTROSE 5% 100ML 100 ML IV SCH ×2 (07:53→17:25)
[2017-09-01] MEDS: SOD PHOSPHATE/SOD BIPHOSPHATE ENEMA 132 ML BTL PR ONE (08:21)
[2017-09-01 08:28] VITALS: BP 140/78; PULSE 64; TEMP 36.8; O2SAT 94
[2017-09-01 08:31] VITALS: O2SAT 94
[2017-09-01] MEDS: LOSARTAN POTASSIUM 50 MG TAB PO SCH (08:43)
--- NOTE | 2017-09-01 08:45 | Family Medicine Progress Note ---
Progress Note Date of Service Sep 01, 2017. Subjective Pt evaluation today including: conversation w/ patient, conversation w/ family , physical exam, chart review, lab review, review of studies, conversation w/ outside solar sales consultant Patient feeling well this morning, denies acute overnight events. States his abdominal pain is improved, but every couple of hours will have sharp jabbing pain that lasts a few seconds. He is NPO for procedure today, and notes that he hasn't eaten for several days. He has decreased stool output as a result and states the stool he moved today from the enema looked more brown and less bloody. He is not feeling nauseous or vomiting. He otherwise denies fevers/ chills, headaches, CP, palpitations, dyspnea, lower extremity swelling or rashes. He admits he has not been ambulating much. He denies issues with voiding. ROS is unremarkable except as noted above. Objective Vital Signs Date Time Temp Pulse Resp B/P (MAP) Pulse Ox O2 Delivery O2 Flow Rate FiO2 09/01/17 08:31 94 Room Air 09/01/17 08:28 36.8 64 14 140/78 (98) 94 Room Air 08/31/17 23:45 Room Air 08/31/17 23:35 37.6 70 16 146/66 (92) 96 Room Air 08/31/17 15:30 Room Air 08/31/17 14:52 36.9 65 16 161/77 (105) 96 Room Air 08/31/17 09:10 Room Air Physical Exam General Appearance: WD/WN, no apparent distress Eyes: normal inspection ENT: hearing grossly normal, pharynx normal Neck: supple Respiratory/Chest: lungs clear, normal breath sounds, no respiratory distress, no accessory muscle use Cardiovascular: regular rate, rhythm, no murmur Abdomen: normal bowel sounds, soft, + tenderness (LLQ, worse also with deep breaths on auscultation of chest), + pertinent finding (No rebound or guarding) Extremities: no pedal edema, no calf tenderness Neurologic/Psychiatric: alert, normal mood/affect, oriented x 3 Skin: normal color, warm/dry, no rash Laboratory Results Results Past 24 Hours Test 09/01/17 06:16 Range/Units White Blood Count 7.75 4.8-10.8 K/uL Red Blood Count 4.25 4.7-6.1 M/uL Hemoglobin 12.3 14.0-18.0 g/dL Hematocrit 37.7 42-52 % Mean Corpuscular Volume 88.7 80-100 fL Mean Corpuscular Hemoglobin 28.9 25-34 pg Mean Corpuscular Hemoglobin Concent 32.6 32-36 g/dl Platelet Count 201 130-400 K/uL Mean Platelet Volume 9.7 7.4-10.4 fL Neutrophils (%) (Auto) 57.2 % Lymphocytes (%) (Auto) 27.9 % Monocytes (%) (Auto) 8.5 % Eosinophils (%) (Auto) 5.9 % Basophils (%) (Auto) 0.4 % Neutrophils # (Auto) 4.43 1.4-6.5 K/uL Lymphocytes # (Auto) 2.16 1.2-3.4 K/uL Monocytes # (Auto) 0.66 0.11-0.59 K/uL Eosinophils # (Auto) 0.46 0-0.5 K/uL Basophils # (Auto) 0.03 0-0.2 K/uL RDW Standard Deviation 45.9 36.4-46.3 fL RDW Coefficient of Variation 14.1 11.5-14.5 % Immature Granulocyte % (Auto) 0.1 % Immature Granulocyte # (Auto) 0.01 0.00-0.02 K/uL Sodium Level 141 136-145 mmol/L Potassium Level 3.7 3.5-5.1 mmol/L Chloride Level 109 98-107 mmol/L Carbon Dioxide Level 24 21-32 mmol/L Anion Gap 8.0 3-11 mmol/L Blood Urea Nitrogen 11 7-18 mg/dl Creatinine 1.09 0.60-1.40 mg/dl Est Creatinine Clear Calc Drug Dose 58.4 ml/min Estimated GFR () 77.6 Estimated GFR (Non- 67.0 BUN/Creatinine Ratio 5.8 10-20 Random Glucose 93 70-99 mg/dl Calcium Level 7.6 8.5-10.1 mg/dl Assessment and Plan This is a 72 yo m with HTN, BPH and PSA between 10-20, HLD that presented to us with what appears to be a colitis of unknown etiology and BRBPR. Colitis secondary to ischemia with new onset constipation GI consult, appreciate recs. Stool cultures prelim negative, C Diff and WBC stool neg. Sigmoidoscopy reveals diverticulosis in sigmoid colon, small ulcerated and erythematous area in transverse colon consistent with ischemic colitis - IVF NSS at 75 cc/hr, start low fiber diet and will wean off fluids tomorrow - Continue Zosyn - Trace pathology for colon biopsy - Mesenteric U/S ordered, as per GI Bilateral Inguinal hernia, Right containing bowel - Agreeable to outpatient general surgery consult HTN - Losartan 100 mg daily and terazosin 5 mg HS. Hydralazine PRN - Patient is intolerant to diuretics secondary to BPH BPH with elevated PSA between 10-20 - Terazosin 5 mg HS - Intolerant to tamsulosin secondary to retrograde ejaculation and not interested in finasteride as still sexually active - If no improvement in BPH symptoms, could consider increased dose terazosin 10 mg or if insurance would cover, d/c Hytrin altogether and change to Cialis 5 mg daily with change of antihypertensive to an agent such as carvedilol - Urology referral was offered in office however had biopsies in past and PSA stable, would prefer not to see urology HLD - Continue simvastatin DVT Prophylaxis Chemical prophylaxis contraindicated with active bleeding - SCD FULL CODE Continued [facility] stay due to: other Discharge planning: home Resident Tracking Resident Involvement: Resident Care Provided Care Provided: Adult Hospital Medicine Reviewed: Pt Seen/Exam by Me History no further abdominal pain Constitutional: denies: fever Cardiovascular: denies chest pain General Appearance: no apparent distress Respiratory: lungs clear, no respiratory distress Cardiovascular: regular rate, rhythm Gastrointestinal: soft Neurologic/Psychiatric: alert, oriented x 3 Skin Characteristics: warm/dry Assessment/Plan Resident Physician Supervision Note: I independently interviewed and examined the patient and verified the donovan history and physical, reviewed labs and image studies, discussed the case with the resident Dr. Snider and agree with the findings and care plan.
[2017-09-01] MEDS ORDERED: PROPOFOL IV EMULSION 10 MG/ML 20 ML VIAL IV ONE (15:49)
[2017-09-01] MEDS ORDERED: LIDOCAINE HCL 2% 2 ML VIAL (20MG/ML) ONE (15:49)
--- NOTE | 2017-09-01 15:56 | Endo History and Physical ---
History & Physical Date of Service: Sep 01, 2017. Chief Complaint: diarrhea Referring Physician: Dr Stewart History of Present Illness For Flex sig Past Surgical History Hx Cardiac Surgery: No Hx Abdominal Surgery: No Hx Post-Op Nausea and Vomiting: No Hx Cancer Surgery: No Hx Thoracic Surgery: No Hx Orthopedic: No Hx Urinary Tract Surgery: No Social History Smoking Status: Never Smoker Smokeless Tobacco Use: No Hx Substance Use: No Hx Alcohol Use: No Allergies Coded Allergies: No Known Allergies (Unverified , 08/30/17) Current Medications Reported Home Medications Medications Dose Route/Sig Max Daily Dose Days Date Category [Unknown Cardiac Med] PO DAILY 08/30/17 Reported Zocor (Simvastatin) Unknown Strength Tab Unknown Dose PO QPM 08/30/17 Reported Losartan Potassium Unknown Strength Tab Unknown Dose PO DAILY 08/30/17 Reported Vital Signs Weight (Kilograms): 77.500 Height (Feet): 5 Height (Inches): 8.00 Date Time Temp Pulse Resp B/P (MAP) Pulse Ox O2 Delivery O2 Flow Rate FiO2 09/01/17 15:38 36.6 60 16 168/77 (107) 96 Room Air 09/01/17 08:31 94 Room Air 09/01/17 08:28 36.8 64 14 140/78 (98) 94 Room Air 09/01/17 07:45 Room Air 08/31/17 23:45 Room Air 08/31/17 23:35 37.6 70 16 146/66 (92) 96 Room Air Physical Exam General Appearance: WD/WN Respiratory/Chest: Respiratory effort: no dyspnea Cardiovascular: Heart Auscultation: RRR Abdomen: Inspection & Palpation: soft (Diarrhea, rectal bleeding for flex sig) Assessment and Plan diarrhea, rectal bleeding for flex sig
--- NOTE | 2017-09-01 16:21 | Discharge Instructions ---
Endoscopy Patient Instructions Date / Procedure(s) Performed Sep 01, 2017. Flex Sig Allergy Information Coded Allergies: No Known Allergies (Unverified , 08/30/17) Discharge Date / Findings Sep 01, 2017. Ischemic colon, diverticulosis Medication Instructions Restart Stopped Medication(s): resume meds Current Inpatient Medications Medications (Trade) Dose Ordered Sig/Alba Route Start Time Stop Time Status Last Admin Dose Admin Ioversol (Optiray 320) 100 ml UD PRN IV 08/30/17 18:45 09/03/17 18:44 Acetaminophen (Tylenol Tab) 650 mg Q4H PRN PO 08/30/17 21:45 09/29/17 21:44 Al Hydrox/Mg Hydrox/Simethicone (Maalox Max Susp) 15 ml Q4H PRN PO 08/30/17 21:45 09/29/17 21:44 Magnesium Hydroxide (Milk Of Magnesia Susp) 30 ml Q6H PRN PO 08/30/17 21:45 09/29/17 21:44 Polyethylene (Miralax Powder Packet) 17 gm DAILY PRN PO 08/30/17 21:45 09/29/17 21:44 Ondansetron HCl (Zofran Inj) 4 mg Q6H PRN IV 08/30/17 21:45 09/29/17 21:44 Sodium Chloride 1,000 ml @ 75 mls/hr [id number] IV 08/30/17 21:45 09/29/17 21:44 09/01/17 05:20 75 MLS/HR Hydralazine HCl (HydrALAZINE INJ) 10 mg Q4H PRN IV. 08/31/17 01:00 09/30/17 00:59 08/31/17 01:44 10 MG Piperacillin Sod/ Tazobactam Sod 3.375 gm/Dextrose 115 ml @ 28.75 mls/ hr Q8H IV 08/31/17 16:00 09/10/17 08:59 09/01/17 07:53 28.75 MLS/HR Miscellaneous Information (Consult) 1 ea UD PRN N/A 08/31/17 08:15 09/30/17 08:14 Losartan Potassium (coZAAR TAB) 100 mg QAM PO 09/01/17 09:00 10/01/17 08:59 Terazosin HCl (Hytrin Cap) 5 mg HS PO 08/31/17 21:00 09/30/17 20:59 08/31/17 20:30 5 MG Simvastatin (Zocor Tab) 40 mg PM PO 08/31/17 21:00 09/30/17 20:59 08/31/17 20:30 40 MG Provider Instructions Activity Restrictions - No exercising or heavy lifting for 24 hours. - Do not drink alcohol the day of the procedure. - Do not drive a car or operate machinery until the day after the procedure. - Do not make any important decisions or sign important papers in 24 hours after the procedure. Following Day: - Return to full activity which may include returning to work/school. Diet Start your diet with liquids and light foods (jello, soup, juice, toast). Then eat your usual diet if not nauseated. Treatment For Common After Affects For mild abdominal pain, bloating, or excessive gas: - Rest - Eat lightly - Lie on right side Follow-Up Information Follow-up with as scheduled Anesthesia Information What You Should Know You have had a procedure that required some medicine to reduce anxiety and discomfort. This treatment is called moderate sedation. After receiving the treatment, you may be sleepy, but you will be able to breathe on your own. The effects of the treatment may last for several hours. Follow these instructions along with Activity/Diet recommendations noted above: * Do NOT do anything where dizziness or clumsiness would be dangerous. * Rest quietly at home today, then you can be up and about tomorrow. * Have a responsible person stay with you the rest of today. * You may have had an I.V. today. If so, you may take the dressing off later today. Recommendations Call your doctor if: * Trouble breathing * Continuous vomiting for more than 24 hours * Temperature above 101 degrees * Severe abdominal pain or bloating * Pain not relieved by pain medicine ordered * There is increased drainage or redness from any incision * A large amount of rectal bleeding greater than 2-3 tablespoons. (If you had a polyp/s removed or have hemorrhoids, a small amount of blood - from the rectum is to be expected.) * You have any unanswered questions or concerns. IN THE EVENT OF A SERIOUS EMERGENCY, GO TO THE NEAREST EMERGENCY ROOM Your discharge instructions were prepared by provider Charan Fernandez. Patient Instructions Signature Page Kemar Marques Patient (or Guardian) Signature/Date: I have read and understand the instructions given to me by my caregivers. Caregiver/RN/Doctor Signature/Date: The above-named patient and/or guardian has received patient instructions on this date. + Original Patient Signature Page (only) stays with chart. Please make copy for patient.
--- NOTE | 2017-09-01 16:26 | GI REPORT ---
Procedure Date: 09/01/2017 4:06 PM Procedure: Flexible Sigmoidoscopy Indications: Hematochezia, Diarrhea Medicines: Propofol total dose 80 mg IV Complications: No immediate complications. Estimated Blood Loss: Estimated blood loss was minimal. Procedure: Pre-Anesthesia Assessment: - Prior to the procedure, a History and Physical was performed, and patient medications, allergies and sensitivities were reviewed. The patient's tolerance of previous anesthesia was reviewed. - The risks and benefits of the procedure and the sedation options and risks were discussed with the patient. All questions were answered and informed consent was obtained. After obtaining informed consent, the endoscope was passed under direct vision. Throughout the procedure, the patient's blood pressure, pulse, and oxygen saturations were monitored continuously. The scope was introduced through the anus and advanced to the left transverse colon. The flexible sigmoidoscopy was accomplished without difficulty. The patient tolerated the procedure well. The quality of the bowel preparation was fair. Findings: A few diverticula were found in the sigmoid colon. A localized area of mildly erythematous and ulcerated mucosa was found in the transverse colon. Biopsies were taken with a cold forceps for histology. Estimated blood loss was minimal. Impression: - Preparation of the colon was fair. - Diverticulosis in the sigmoid colon. - Erythematous and ulcerated mucosa in the transverse colon. Biopsied. Recommendation: - [facility]. - Low fiber diet today. Charan Fernandez M.D. Charan Fernandez MD 09/01/2017 4:26:24 PM This report has been signed electronically. Note Initiated On: 09/01/2017 4:06 PM I attest to the content of the Intraoperative Record and orders documented therein, exceptions below
--- NOTE | 2017-09-01 16:49 | Anesthesiology Progress Note ---
Anesthesia Post Op Note Date & Time Sep 01, 2017 at 16:49 Vital Signs Pain Intensity: 0 Vital Signs Past 12 Hours Date Time Temp Pulse Resp B/P (MAP) Pulse Ox O2 Delivery O2 Flow Rate FiO2 09/01/17 16:37 51 16 169/88 (115) 98 Room Air 09/01/17 16:22 60 16 139/74 (95) 95 Room Air 09/01/17 15:38 36.6 60 16 168/77 (107) 96 Room Air 09/01/17 08:31 94 Room Air 09/01/17 08:28 36.8 64 14 140/78 (98) 94 Room Air 09/01/17 07:45 Room Air Notes Mental Status: alert / awake / arousable, participated in evaluation Pt Amnestic to Procedure: Yes Nausea / Vomiting: adequately controlled Pain: adequately controlled Airway Patency, RR, SpO2: stable & adequate BP & HR: stable & adequate Hydration State: stable & adequate Anesthetic Complications: no major complications apparent
--- NOTE | 2017-09-01 17:06 | PROGRESS NOTE ---
DATE: 09/01/2017 REASON FOR EVALUATION: Diarrhea, rectal bleeding. HISTORY OF PRESENT ILLNESS: The patient underwent a flexible sigmoidoscopy today with sedation. The prep was fair. The exam was carried into the mid transverse colon. In the left colon there were a few scattered diverticula, but no signs of inflammation. Past the splenic flexure there were signs of mild colonic ischemia. Biopsies were done to confirm it. IMPRESSION: The patient has what appears to be colonic ischemia. The patient will continue with relative bowel rest. Will put him on a low fiber diet and I ordered a mesenteric Doppler to assess the vascular blood flow to his colon.
[2017-09-01 17:16] VITALS: BP 187/96; PULSE 50; TEMP 36.5; O2SAT 99
[2017-09-01] MEDS: HydrALAZINE HCL 20 MG/ML VIAL IV. PRN (17:23)
[2017-09-01] MEDS ORDERED: NURSING VERBAL MED ORDER ONE (17:45)
[2017-09-01 19:09] VITALS: BP 145/70
[2017-09-01 20:30] VITALS: BP 158/78
[2017-09-01] MEDS: SIMVASTATIN 40 MG TAB PO SCH (20:33)
[2017-09-01 23:25] VITALS: BP 148/69; PULSE 74; TEMP 37.2; O2SAT 95
[2017-09-02] MEDS: PIPERACILL/TAZOBAC IV 3.375 GM in DEXTROSE 5% 100ML 100 ML IV SCH ×4 (00:06→23:09)
[2017-09-02 03:35] VITALS: BP 137/60; PULSE 78; TEMP 37.4; O2SAT 95
[2017-09-02 06:53] LABS: BASO % 0.5 %; BASO ABS # 0.03 K/uL (0-0.2); EOS % 8.4 %; EOS ABS # 0.53 K/uL (0-0.5); HEMATOCRIT 35.7 % (42-52); HEMOGLOBIN 11.8 g/dL (14.0-18.0); IG# 0.01 K/uL (0.00-0.02); LYMPH % 25.5 %; LYMPH ABS # 1.61 K/uL (1.2-3.4); MEAN CELL VOLUME 87.7 fL (80-100); MEAN CORPUSCULAR HGB CONC 33.1 g/dl (32-36); MEAN PLATELET VOLUME 9.2 fL (7.4-10.4); MONO % 8.7 %; MONO ABS # 0.55 K/uL (0.11-0.59); NEUT % 56.7 %; NEUT ABS # 3.58 K/uL (1.4-6.5); PLATELET COUNT 185 K/uL (130-400); RED CELL DISTRIBUTION WIDTH CV 13.8 % (11.5-14.5); RED CELL DISTRIBUTION WIDTH SD 44.4 fL (36.4-46.3); WHITE BLOOD COUNT 6.31 K/uL (4.8-10.8)
--- NOTE | 2017-09-02 07:10 | Family Medicine Progress Note ---
Progress Note Date of Service Sep 02, 2017. Subjective Pt evaluation today including: conversation w/ patient, conversation w/ family , physical exam, chart review, lab review, review of studies, conversation w/ virtualization consultant, review of inpatient medication list Patient well, denies acute overnight events. States his abdominal discomfort appears to be largely resolved this morning. He denies nausea, vomiting, bloating, and tolerated low fiber diet well. He has not had a BM today, but is hoping BRB ID continues to decrease as it seemed to be yesterday. He otherwise denies symptoms of anemia, fevers/chills, headaches, CP, palpitations, dyspnea, abdominal pain, lower extremity swelling or rashes. He has been ambulating more since yesterday. ROS is unremarkable except as noted above. Objective Vital Signs Date Time Temp Pulse Resp B/P (MAP) Pulse Ox O2 Delivery O2 Flow Rate FiO2 09/02/17 03:35 37.4 78 17 137/60 (85) 95 Room Air 09/02/17 00:05 Room Air 09/01/17 23:25 37.2 74 16 148/69 (95) 95 Room Air 09/01/17 20:30 158/78 (104) 09/01/17 19:09 145/70 (95) 09/01/17 17:16 36.5 50 18 187/96 (126) 99 Room Air 09/01/17 16:37 51 16 169/88 (115) 98 Room Air 09/01/17 16:22 60 16 139/74 (95) 95 Room Air 09/01/17 15:38 36.6 60 16 168/77 (107) 96 Room Air 09/01/17 15:20 Room Air 09/01/17 08:31 94 Room Air 09/01/17 08:28 36.8 64 14 140/78 (98) 94 Room Air 09/01/17 07:45 Room Air Physical Exam General Appearance: WD/WN, no apparent distress Eyes: normal inspection ENT: hearing grossly normal, pharynx normal Neck: supple Respiratory/Chest: lungs clear, normal breath sounds, no respiratory distress, no accessory muscle use Cardiovascular: regular rate, rhythm, no murmur Abdomen: normal bowel sounds, non tender, soft, no organomegaly Extremities: no pedal edema, no calf tenderness Neurologic/Psychiatric: alert, normal mood/affect, oriented x 3 Skin: normal color, warm/dry, no rash Laboratory Results Results Past 24 Hours Test 09/02/17 06:39 Range/Units White Blood Count 6.31 4.8-10.8 K/uL Red Blood Count 4.07 4.7-6.1 M/uL Hemoglobin 11.8 14.0-18.0 g/dL Hematocrit 35.7 42-52 % Mean Corpuscular Volume 87.7 80-100 fL Mean Corpuscular Hemoglobin 29.0 25-34 pg Mean Corpuscular Hemoglobin Concent 33.1 32-36 g/dl Platelet Count 185 130-400 K/uL Mean Platelet Volume 9.2 7.4-10.4 fL Neutrophils (%) (Auto) 56.7 % Lymphocytes (%) (Auto) 25.5 % Monocytes (%) (Auto) 8.7 % Eosinophils (%) (Auto) 8.4 % Basophils (%) (Auto) 0.5 % Neutrophils # (Auto) 3.58 1.4-6.5 K/uL Lymphocytes # (Auto) 1.61 1.2-3.4 K/uL Monocytes # (Auto) 0.55 0.11-0.59 K/uL Eosinophils # (Auto) 0.53 0-0.5 K/uL Basophils # (Auto) 0.03 0-0.2 K/uL RDW Standard Deviation 44.4 36.4-46.3 fL RDW Coefficient of Variation 13.8 11.5-14.5 % Immature Granulocyte % (Auto) 0.2 % Immature Granulocyte # (Auto) 0.01 0.00-0.02 K/uL Sodium Level 141 136-145 mmol/L Potassium Level 3.6 3.5-5.1 mmol/L Chloride Level 109 98-107 mmol/L Carbon Dioxide Level 25 21-32 mmol/L Anion Gap 7.0 3-11 mmol/L Blood Urea Nitrogen 11 7-18 mg/dl Creatinine 1.08 0.60-1.40 mg/dl Est Creatinine Clear Calc Drug Dose 58.9 ml/min Estimated GFR () 78.5 Estimated GFR (Non- 67.7 BUN/Creatinine Ratio 10.2 10-20 Random Glucose 85 70-99 mg/dl Calcium Level 7.7 8.5-10.1 mg/dl Assessment and Plan This is a 72 yo m with HTN, BPH and PSA between 10-20, HLD that presented to us with what appears to be a colitis of unknown etiology and BRBPR. Colitis secondary to ischemia with new onset constipation GI consult, appreciate recs. Stool cultures negative, C Diff and WBC stool neg. Sigmoidoscopy reveals diverticulosis in sigmoid colon, small ulcerated and erythematous area in transverse colon consistent with ischemic colitis. 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 Vascular consulted, recs appreciated. - IVF NSS at 75 cc/hr, start low fiber diet and will wean off fluids tomorrow - Continue Zosyn - Trace pathology for colon biopsy - CT angiogram abdo/pelvis ordered, as per vascular - Patient will require follow up colonoscopy in 8-12 weeks to ensure there is complete healing and to exclude any additional lesions Bilateral Inguinal hernia, Right containing bowel - Agreeable to outpatient general surgery consult HTN - Losartan 100 mg daily and terazosin 5 mg HS. Hydralazine PRN - Patient is intolerant to diuretics secondary to BPH BPH with elevated PSA between 10-20 - Terazosin 5 mg HS - Intolerant to tamsulosin secondary to retrograde ejaculation and not interested in finasteride as still sexually active - Some improvement in BPH symptoms, although not as significant as with tamsulosin. Patient will discuss with his PCP increased dose terazosin 10 mg or if insurance would cover, d/c Hytrin altogether and change to Cialis 5 mg daily with change of antihypertensive to an agent such as carvedilol - Urology referral was offered in office however had biopsies in past and PSA stable, would prefer not to see urology HLD - Continue simvastatin DVT Prophylaxis Chemical prophylaxis contraindicated with active bleeding - SCD FULL CODE Continued [facility] stay due to: other (studies pending) Discharge planning: home Resident Tracking Resident Involvement: Resident Care Provided Care Provided: Adult Hospital Medicine Reviewed: Pt Seen/Exam by Me History tolerated solid meals well. no pain Constitutional: denies: fever Respiratory: negative: short of breath Cardiovascular: denies chest pain Gastrointestinal/Abdominal: negative: abdominal pain General Appearance: no apparent distress Respiratory: lungs clear, no respiratory distress Cardiovascular: regular rate, rhythm Gastrointestinal: normal bowel sounds, non tender, soft Neurologic/Psychiatric: alert, oriented x 3 Skin Characteristics: warm/dry Assessment/Plan Resident Physician Supervision Note: I independently interviewed and examined the patient and verified the donovan history and physical, reviewed labs and image studies, discussed the case with the resident Dr. Snider and agree with the findings and care plan.
[2017-09-02 07:19] VITALS: BP 151/69; PULSE 68; TEMP 36.8; O2SAT 95
[2017-09-02 07:32] LABS: CALCIUM 7.7 mg/dl (8.5-10.1); CREATININE 1.08 mg/dl (0.60-1.40); POTASSIUM 3.6 mmol/L (3.5-5.1)
--- NOTE | 2017-09-02 08:35 | DIAGNOSTIC IMAGING REPORT ---
DUPLEX MESENTERIC CLINICAL HISTORY: ischemic colon ischemia TECHNIQUE: Doppler COMPARISON STUDY: CT 08/30/2017 FINDINGS: Considerable increase in velocity of the celiac axis. Moderate increase in velocity of the mid mesenteric artery. Normal velocity characteristics the hepatic and splenic arterial vasculature. IMPRESSION: 1. High-grade stenosis external celiac axis. 2. Moderate stenosis mid superior mesenteric artery. The above report was generated using voice recognition software. It may contain grammatical, syntax or spelling errors. Electronically signed by: Denton Richards M.D. 09/02/2017 8:34 AM Dictated Date/Time: 09/02/2017 8:31 AM
[2017-09-02] MEDS: LOSARTAN POTASSIUM 50 MG TAB PO SCH (08:39)
[2017-09-02] MEDS: SODIUM CHLORIDE 0.9% 1000ML 1,000 ML IV SCH ×2 (08:54→22:59)
--- NOTE | 2017-09-02 14:44 | Surgery Consultation ---
Consultation Date of Service Sep 02, 2017. Chief Complaint bowel ischemia History of Present Illness The patient is a 72 year old male with hx of HTN and hypercholesterolemia, admitted with GI bleeding and abd pain, seen in consultation today for possible ischemic colitis. Pt states he has had sx of L sided abd pain and intermittent constipation and diarrhea for past few months. Has seen his PCP in past, sx thought to be diverticulitis, so given abx and sx resolved. States 3 days ago he noted loose stools that had charley blood and clots in it, as well as having abd pain different from usual pain, so came to [facility] ED for further eval. Had sigmidoscopy yesterday which indicated possible area of ischmic mucosa, so US ordered, which demonstrated elevated velocities in SMA and significant stenosis in celiac art. Pt denies pain today and is anxious to get home soon. Denies TRIPATHI, fever, chills, chest pain, N/V, claudication, rest pain, ulcers, other complaints. Vitals Vital Signs Past 12 Hours Date Time Temp Pulse Resp B/P (MAP) Pulse Ox O2 Delivery O2 Flow Rate FiO2 09/02/17 08:30 Room Air 09/02/17 07:19 36.8 68 16 151/69 (96) 95 Room Air 09/02/17 03:35 37.4 78 17 137/60 (85) 95 Room Air Allergies Coded Allergies: No Known Allergies (Unverified , 08/30/17) Home Medications Scheduled Losartan Potassium (Losartan Potassium), Unknown Dose PO DAILY Simvastatin (Zocor), Unknown Dose PO QPM [Unknown Cardiac Med], PO DAILY Problem List Medical Problems: (1) Colitis (2) Diverticulitis (3) Rectal bleeding Surgical / Medical History Hx Cardiac Surgery: No Hx Abdominal Surgery: No Hx Cancer Surgery: No Hx Thoracic Surgery: No Hx Orthopedic: No Hx Urinary Tract Surgery: No Past Medical/Surgical History: Hypertension Family History + HTN, CAD, [place] Social History Smoking Status: Never Smoker Hx Tobacco Use In Past Year?: No Hx Alcohol Use - Type & Amnt: No Hx Substance Use -Type & Amnt: No Review of Systems Constitutional: No chills, No fever, No malaise Skin: No change in color Eyes: No visual changes ENMT: No sore throat Respiratory: No cough, No [place], No hemoptysis Cardiovascular: No chest pain, No edema, No intermittent claudication Gastrointestinal: + abdominal pain, + constipation, + diarrhea, No nausea, No vomiting Musculoskeletal: No back pain Neurologic: No dizziness, No headache, No lethargy, No numbness, No tingling Physical Exam Constitutional: General Apperance: heathly-appearing, well-nourished, well-developed Level of Distress: NAD Ambulation: ambulating normally Psychiatric: Mental Status: active & alert, normal mood, normal affect Orientation: oriented except where noted, to time, to place, to person Memory: recent memory normal, remote memory normal Head: normocephalic, atraumatic Eyes: EOM: EOMI ENMT: normal ENT inspection, hearing grossly normal Neck: supple, trachea midline Lungs: Respiratory effort: no dyspnea Auscultation: no wheezing, no rales/crackles, no rhonchi, decreased breath sounds Cardiovascular: Apical Impulse: not displaced Heart Auscultation: RRR, no murmurs, no rubs, no gallops Peripheral Pulses: Pulses: full and equal, in all extremities except if noted Bruits: none appreciated Carotid Pulse: normal on the left, normal on the right Brachial Pulses: normal on the left, normal on the right Radial Pulse: normal on the left, normal on the right Femoral Pulse: normal on the left, normal on the right Posterior Tibialis Pulse: decreased on the left, decreased on the right Dorsalis Pedis Pulse: decreased on the left, decreased on the right Abdomen: Bowel Sounds: normal Inspection & Palpation: soft, non-distended, RLQ tenderness (minimal) Musculoskeletal: normal strength (5/5 throughout), normal tone Extremities: Upper Right: no cyanosis, no edema, no varicosities Upper Left: no cyanosis, no edema, no varicosities Lower Right: no cyanosis, no edema, no varicosities Lower Left: no cyanosis, no edema, no varicosities Neurologic: Cranial Nerves: grossly intact Sensation: grossly intact Assessment and Plan ASSESSMENT and PLAN: Celiac/SMA stenosis Ischemic colitis Pt discussed with Dr Fontanez, recommends pt to have CTA performed before making further recommendations. Pt and agreeable.
[2017-09-02] MEDS ORDERED: OPTIRAY 320 IV PRN (14:45)
[2017-09-02 15:00] VITALS: BP 147/71; PULSE 68; TEMP 37.1; O2SAT 95
[2017-09-02 20:51] VITALS: BP 177/72
[2017-09-02] MEDS: SIMVASTATIN 40 MG TAB PO SCH (20:52)
--- NOTE | 2017-09-02 21:26 | DIAGNOSTIC IMAGING REPORT ---
ADDENDUM Addendum: Stenographer Secretary tomogram demonstrates apparent left upper lobe airspace opacity which may reflect pneumonia or a pulmonary nodule. Follow-up PA and lateral chest radiographs are recommended. Electronically signed by: Daryl Licona M.D. 09/02/2017 9:32 PM Dictated Date/Time: 09/02/2017 9:[address] OF THE ABDOMEN AND PELVIS WITHOUT CONTRAST AND CT ANGIOGRAPHY OF THE ABDOMEN AND PELVIS CLINICAL HISTORY: Colitis. Rectal bleeding. Mesenteric stenosis. COMPARISON STUDY: CT of the abdomen and pelvis August 30, 2017 and mesenteric Doppler ultrasound September 02, 2017. TECHNIQUE: Unenhanced and arterial phase imaging of the abdomen and pelvis was performed. Injection 116 cc of Optiray 320 IV was uneventful. Sagittal and coronal reconstructed reviewed as well as maximal intensity projections on an independent 3-D workstation. FINDINGS: The computerized machine fabric cutter tomogram demonstrates apparent left upper lobe airspace opacity. The caliber of the abdominal aorta is normal. There is mild atherosclerotic plaque within the abdominal aorta and the branch vessels which are patent. There is no significant stenosis of the celiac axis, superior mesenteric artery, renal arteries or inferior mesenteric artery. There is no dissection within the abdominal aorta. There is an accessory right renal artery. Arterial phase images of the liver, spleen, adrenal glands and pancreas are unremarkable as are the kidneys. There is mild pericolonic infiltration involving the splenic flexure of the colon and the proximal descending colon. Colonic wall thickening has improved since prior exam. There is a small amount of ascites within the pelvis. A right inguinal hernia contains a loop of small bowel without resultant bowel obstruction. There is a fat-containing left inguinal hernia. There are no suspicious osseous lesions. Prostate is moderately enlarged. IMPRESSION: 1. No significant stenosis within the major mesenteric vessels. Normal caliber abdominal aorta with mild atherosclerotic plaque within the abdominal aorta and branch vessels. No abdominal aortic dissection. 2. Mild pericolonic infiltration involving the splenic flexure of the colon and the proximal descending colon with interval improvement in colonic wall thickening. This represents a nonspecific colitis which may be infectious, ischemic or inflammatory in etiology. No free air, pneumatosis or portal venous gas. Small amount of ascites within the pelvis. Electronically signed by: Daryl Licona M.D. 09/02/2017 9:25 PM Dictated Date/Time: 09/02/2017 9:15 PM
--- NOTE | 2017-09-02 21:54 | GASTROENTEROLOGY PROGRESS NOTE ---
DATE: 09/02/2017 SUBJECTIVE: Chart reviewed, patient examined. The patient was admitted for rectal bleeding, abdominal pain and found to have features endoscopically suggesting ischemic colitis in the transverse colon region. The pathology from September 01 revealed transverse colon biopsies consistent with changes of ischemia with otherwise benign features that was negative for dysplasia or malignancy. On mesenteric Dopplers, the patient does have evidence of high grade stenosis in the external celiac axis and moderate stenosis to the mid superior mesenteric artery. The patient historically denies any nausea, vomiting, chronic abdominal pain, chronic weight loss, early satiety or features of, chest pain, shortness of breath or intermittent claudication. His CT on 08/30/2017 had shown bilateral fat-filled inguinal hernias. No evidence for bowel obstruction, a nonobstructing calculus and circumferential wall thickening involving the area from the hepatic flexure to the mid descending consistent with colitis. The patient tolerated p.o. intake well today. He did not receive blood products during his admission. LABORATORY STUDIES: Today show hemoglobin of 11.8. His admission hemoglobin was 14.5. Clinically, the patient is not reporting any melena or bright red blood per rectum or diarrhea. REVIEW OF SYSTEMS: Otherwise noncontributory based on 13-point exam except for mentioned above. ALLERGIES: He has no known drug allergies. MEDICATIONS: Include losartan, Hytrin, simvastatin, Zosyn, hydralazine, Zofran. OBJECTIVE: VITAL SIGNS: Afebrile 37.1, blood pressure is 147/71, heart rate 68, respirations 16, 95% on room air. GENERAL: The patient is awake, alert and oriented x3. The patient is accompanied by several family members. HEENT: Sclerae are anicteric, conjunctiva moist. Oral mucosa moist. HEART: Normal S1, S2. LUNGS: Clear to auscultation. ABDOMEN: Soft, flat, nontender, nondistended with positive bowel sounds. EXTREMITIES: Without edema. RECTAL: Deferred. ASSESSMENT: The patient with features endoscopically and by biopsy suggesting ischemic colitis. Regarding a followup colonoscopy it is prudent that the patient undergo a complete colon examination in 8-12 weeks to ensure that there is complete healing as well as to exclude any additional lesion. Regarding the significant arterial vascular changes seen on ultrasound, a CTA has already been ordered and the results are pending at this time. Depending on the results evaluation by vascular surgery has been made and assessment and plan was reviewed. We would continue to advance diet slowly as tolerated. Monitor hemoglobin. We will arrange for colonoscopy as an outpatient in 2-3 months and further recommendations once the CTA is available and vascular surgery input is available. All questions answered.
[2017-09-02 22:38] VITALS: BP 167/84
[2017-09-02 22:55] VITALS: BP 159/84; PULSE 55; TEMP 37.2; O2SAT 95
[2017-09-03] MEDS: PIPERACILL/TAZOBAC IV 3.375 GM in DEXTROSE 5% 100ML 100 ML IV SCH (07:23)
[2017-09-03 07:36] VITALS: BP 156/78; PULSE 58; TEMP 36.6; O2SAT 94
[2017-09-03 07:47] VITALS: O2SAT 94
--- NOTE | 2017-09-03 08:11 | Progress Note ---
Progress Note Date of Service Sep 03, 2017. Progress Note CTA showed all mesenteric vessels widely patent. No vascular intervention needed. Thank you very much for letting me participate in the care of this patient.
[2017-09-03 08:30] LABS: HEMATOCRIT 37.5 % (42-52); HEMOGLOBIN 12.9 g/dL (14.0-18.0); MEAN CELL VOLUME 87.6 fL (80-100); MEAN CORPUSCULAR HEMOGLOBIN 30.1 pg (25-34); MEAN CORPUSCULAR HGB CONC 34.4 g/dl (32-36); MEAN PLATELET VOLUME 9.4 fL (7.4-10.4); PLATELET COUNT 202 K/uL (130-400); RED CELL DISTRIBUTION WIDTH SD 44.5 fL (36.4-46.3); WHITE BLOOD COUNT 5.79 K/uL (4.8-10.8)
[2017-09-03] MEDS: LOSARTAN POTASSIUM 50 MG TAB PO SCH (08:53)
[2017-09-03] MEDS: SODIUM CHLORIDE 0.9% 1000ML 1,000 ML IV SCH (10:21)
[2017-09-03] MEDS: HydrALAZINE HCL 20 MG/ML VIAL IV. PRN (12:39)
[2017-09-03 12:43] VITALS: BP 172/84; PULSE 53; TEMP 36.9; O2SAT 97
[2017-09-03 12:44] VITALS: BP 173/84; PULSE 57
[2017-09-03] MEDS ORDERED: AMLODIPINE BESYLATE 5 MG TAB PO ONE (13:30)
[2017-09-03] MEDS ORDERED: CZR50 PO (13:44)
[2017-09-03] MEDS ORDERED: AMOX875T PO (13:44)
[2017-09-03] MEDS ORDERED: ZCR40 PO (13:44)
[2017-09-03] MEDS ORDERED: HYT5 PO (13:44)
[2017-09-03] MEDS ORDERED: NRV5 PO (13:44)
--- NOTE | 2017-09-03 13:57 | Discharge Instructions ---
Discharge Instructions Date of Service Sep 03, 2017. Admission Reason for Admission: Colitis, Rectal Bleeding Discharge Discharge Diagnosis / Problem: ischemic colitis Discharge Goals Goal(s): Decrease discomfort, Improve disease control, Diagnostic testing, Therapeutic intervention Activity Recommendations Activity Limitations: resume your previous activity . Instructions / Follow-Up Instructions / Follow-Up You were seen in the hospital for bleeding per rectum. Gastroenterology was consulted. Sigmoidoscopy and biopsy pathology revealed some degree of ischemia ( insufficient oxygenation). Vascular was consulted, and imaging revealed no occlusion of vessels and thus further procedure was not necessary. On discharge you have been prescribed 3 more days of antibiotics to complete the 7 day course. Please finish all of the medication. Taking yoghurt and/or probiotics can help limit GI symptoms. You will need a follow up with GI for a colonoscopy in 8-12 weeks to ensure there is complete healing and to exclude any additional lesions. You will also need to see general surgery on an outpatient for consultation of management of your bilateral inguinal hernias Your blood pressure was elevated in hospital. In addition to losartan 100mg daily, amlodipine 5mg was added. Please follow up with your PCP in 1-2 weeks to recheck blood pressure. She may also refer you for sleep study to determine possible causation of elevated blood pressure. Your PCP may help to titrate your Hytrin if necessary as an outpatient. Please continue all other home medications. Current Hospital Diet Patient's current hospital diet: Low Fiber Diet Discharge Diet Recommended Diet: Low Fiber Diet Procedures Procedures Performed: Flexible Sigmoidoscopy with biopsy, Dr Fernandez Pending Studies Studies pending at discharge: no Medical Emergencies . Who to Call and When: Medical Emergencies: If at any time you feel your situation is an emergency, please call 911 immediately. . Non-Emergent Contact Non-Emergency issues call your: Primary Care Provider, Clinical Rn . . "Provider Documentation" section prepared by Kalani Snider. . Resident Tracking Resident Involvement: Resident Care Provided Care Provided: Adult [facility]
--- NOTE | 2017-09-03 15:08 | Discharge Summary ---
Discharge Summary Date of Service Sep 03, 2017. Discharge Summary Admission Date: Aug 30, 2017 at 21:40 Discharge Date: Sep 03, 2017 Discharge Disposition: Home Principal Diagnosis: Ischemic colitis Immunizations: Have You Had Influenza Vaccine: Unknown History of Tetanus Vaccine?: Unknown History of Pneumococcal: Unknown History of Hepatitis B Vaccine: Unknown Medication Reconciliation New Medications: Amoxicillin & Pot Clavulanate (Augmentin 875-125 mg) 1 Tab Tab 1 TAB PO BID for 3 Days, #6 TAB Amlodipine Besylate (Amlodipine Besylate) 5 Mg Tab 5 MG PO QAM, #30 TAB 2 Refills Losartan Potassium (Losartan Potassium) 50 Mg Tab 100 MG PO QAM, #30 TAB 2 Refills Simvastatin (Simvastatin) 40 Mg Tab 40 MG PO PM, #30 TAB 2 Refills Terazosin HCl (Terazosin HCl) 5 Mg Cap 5 MG PO HS, #30 CAP 2 Refills Discontinued Medications: Losartan Potassium (Losartan Potassium) Unknown Strength Tab Unknown Dose PO DAILY Simvastatin (Zocor) Unknown Strength Tab Unknown Dose PO QPM, TAB [Unknown Cardiac Med] () PO DAILY Discharge Exam Patient well, denies acute overnight events. States his abdominal discomfort appears to be largely resolved. He denies nausea, vomiting, bloating, and tolerated low fiber diet well. He has noted stools are a little looser today. Denies any further BRB ME. No significant new issues with voiding. He otherwise denies symptoms of anemia, fevers/chills, headaches, CP, palpitations, dyspnea, abdominal pain, lower extremity swelling or rashes. He has been ambulating more since yesterday. ROS is unremarkable except as noted above. Physical Exam General Appearance: WD/WN, no apparent distress Eyes: normal inspection ENT: hearing grossly normal, pharynx normal Neck: supple Respiratory/Chest: lungs clear, normal breath sounds, no respiratory distress, no accessory muscle use Cardiovascular: regular rate, rhythm, no murmur Abdomen: normal bowel sounds, non tender, soft, no organomegaly Extremities: no pedal edema, no calf tenderness Neurologic/Psychiatric: alert, normal mood/affect, oriented x 3 Skin: normal color, warm/dry, no rash Hospital Course This is a 72 yo m with HTN, BPH and PSA between 10-20, HLD that presented to us with what appears to be a colitis of unknown etiology and BRBPR. Colitis secondary to ischemia with new onset constipation GI consult, appreciate recs. Stool cultures negative, C Diff and WBC stool neg. Sigmoidoscopy reveals diverticulosis in sigmoid colon, small ulcerated and erythematous area in transverse colon consistent with ischemic colitis. Pathology for colon biopsy consistent with the same finding. 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 Vascular consulted, recs appreciated. CT angiogram abdo/pelvis shows no significant stenosis within the major mesenteric vessels. On discharge: - Prescribed Augmentin x 4 days (to complete 7 day course) for possible infection secondary to translocation in view of ischemic colitis with ulceration. - Yoghurt or probiotics recommended. If worsening diarrhea, please follow up with PCP for testing of stool for c.diff. - Follow up with GI for colonoscopy in 8-12 weeks to ensure there is complete healing and to exclude any additional lesions Pneumonia CXR ordered for incidental finding on CTA. CXR shows confirmation of the left midlung zone patchy airspace opacity, favoring a pneumonia. - With inpatient and outpatient antibiotics, adequate course of antibiotics provided - Recommend repeat CXR in one month to ensure resolution and to exclude the less likely possibility of an underlying pulmonary lesion. Bilateral Inguinal hernia, Right containing bowel - Follow up with PCP for outpatient referral for general surgery consult HTN - Losartan 100 mg daily and terazosin 5 mg HS. Amlodipine 5mg added for additional BP control (patient is intolerant to diuretics secondary to BPH and HR too low for b-jordan, or CCB) - Recommend outpatient sleep study to assess for sleep apnea as a contributor to significant HTN BPH with elevated PSA between 10-20 - Terazosin 5 mg HS - Intolerant to tamsulosin secondary to retrograde ejaculation and not interested in finasteride as still sexually active - Some improvement in BPH symptoms, although not as significant as with tamsulosin. - Discussion with PCP re: increased dose terazosin 10mg versus change to Cialis 5mg daily with change of antihypertensive - Urology referral was offered in office however had biopsies in past and PSA stable, would prefer not to see urology HLD - Continue simvastatin DVT Prophylaxis Chemical prophylaxis contraindicated with active bleeding - SCD FULL CODE Total Time Spent: Greater than 30 minutes This includes examination of the patient, discharge planning, medication reconciliation, and communication with other providers. Discharge Instructions Please refer to the electronic Patient Visit Report (Discharge Instructions) for additional information. Additional Copies To Matilde Stewart MD Resident Tracking Resident Involvement: Resident Care Provided Care Provided: Adult Hospital Medicine Reviewed: Pt Seen/Exam by Me Constitutional: denies: fever Respiratory: negative: short of breath Cardiovascular: denies chest pain Gastrointestinal/Abdominal: positive: diarrhea (loose stool. C diff negative. ) , negative: abdominal pain General Appearance: no apparent distress Respiratory: lungs clear, no respiratory distress Cardiovascular: regular rate, rhythm Gastrointestinal: soft Neurologic/Psychiatric: alert, oriented x 3 Skin Characteristics: warm/dry Assessment/Plan Resident Physician Supervision Note: I independently interviewed and examined the patient and verified the donovan history and physical, reviewed labs and image studies, discussed the case with the resident Dr. Snider and agree with the findings and care plan. Time spent in discharge 35 min
[2017-09-03 15:25] VITALS: BP 173/84; PULSE 57; TEMP 36.9; O2SAT 97
--- NOTE | 2017-09-03 15:55 | DIAGNOSTIC IMAGING REPORT ---
CHEST 2 VIEWS ROUTINE HISTORY: Left lung opacity on recent CT. COMPARISON: Abdomen and pelvis CT 09/02/2017. FINDINGS: The heart is normal in size. The right lung is clear. No pleural effusions. No pneumothorax. Confirmation of the left midlung zone patchy airspace opacity. IMPRESSION: Confirmation of the left midlung zone patchy airspace opacity. This is nonspecific but favors a pneumonia. One month chest x-ray follow-up is recommended to ensure resolution and to exclude the less likely possibility of an underlying pulmonary lesion. Electronically signed by: Ronak Amaro M.D. 09/03/2017 3:53 PM Dictated Date/Time: 09/03/2017 3:51 PM
[2017-09-04] MEDS ORDERED: AMLODIPINE BESYLATE 5 MG TAB PO SCH (09:00)
== END 2017-09-03 16:30 | disposition home or self-care (01) | DRG 393 ==
LOC: C.EDB 18:03 → C.MSW 21:40 → ENRESERV 21:59
PROVIDERS: ADMIT Student in an Organized Health Care Education/Training Program; ATTEND Family Medicine
PROC: 0DBL8ZX Excision of Transverse Colon, Via Natural or Artificial Opening Endoscopic, Diagnostic (ICD-10-PCS; principal; 2017-09-01 15:30)
DX: K55.059 Acute (reversible) ischemia of intestine, part and extent unspecified (principal); K57.31 Diverticulosis of large intestine without perforation or abscess with bleeding; J18.9 Pneumonia, unspecified organism; I10 Essential (primary) hypertension; E78.5 Hyperlipidemia, unspecified; K59.00 Constipation, unspecified; K40.20 Bilateral inguinal hernia, without obstruction or gangrene, not specified as recurrent; N40.0 Benign prostatic hyperplasia without lower urinary tract symptoms

== ENCOUNTER → 2017-09-25 | Outpatient (CLI) | payer OTHER ==
[~2017-09-25] MED LIST: CZR50 PO; HYT5 PO; NRV5 PO; ZCR40 PO
--- NOTE | 2017-09-25 10:36 | DIAGNOSTIC IMAGING REPORT ---
CHEST 2 VIEWS ROUTINE HISTORY: Follow-up abnormal chest x-ray. ABNORMAL FINDING OF DIAGNOSTIC IMAGING OF OTHER SPECIFIED COMPARISON: Chest 09/03/2017. FINDINGS: The left midlung zone airspace opacity has resolved. No new focal lung consolidations. The heart is normal in size. No pleural effusions. No pneumothorax. Calcification within the right upper quadrant favors a granuloma. IMPRESSION: The left midlung zone airspace opacity has resolved in the interval. The lungs are now clear. Electronically signed by: Ronak Amaro M.D. 09/25/2017 10:35 AM Dictated Date/Time: 09/25/2017 10:33 AM
== END | disposition home or self-care (01) ==
LOC: C.RAD1850 10:29
PROVIDERS: ATTEND Family Medicine
DX: R91.8 Other nonspecific abnormal finding of lung field (principal)